=== PATIENT | female | born 1940 | race Caucasian/White ===

== ENCOUNTER → 2021-08-02 | Outpatient (CLI) | payer MEDICARE ==
[~2021-08-02] MED LIST: ATORVASTATIN CA80 MG PO; CARVEDILOL12.5 MG PO; CLEOCIN HCL300 MG PO; COREG 25MG TAB25 MG PO; ELIQUIS5 MG PO; HYDROCODON-ACE1 EAC4 PO; INVOKAMET 150-1 EACH PO; IRBESARTAN300 MG PO; LASIX20 MG PO; LEVOFLOXACIN500 MG PO; METFORMIN HCL1000 MG PO; NORVASC 5 MG TAB5 MG PO; OMEPRAZOLE20 MG PO; PLAVIX 75 MG TA75 MG PO; POTASSIUM CHLO10 MEQ PO; PRINIVIL10 MG PO; SYMBICORT 16010.2 GM INH; VENTOLIN HFA 66.7 GM INH; VITAMIN B-12500 MCG PO; VITAMIN D350 MCG PO; ZOCOR40 MG PO
[2021-08-02 10:46] LABS: HEMOGLOBIN 16.1 gm/dl (12.3-15.3); RED BLOOD COUNT 4.86 M/UL (4.00-5.10); WHITE BLOOD COUNT 9.3 K/UL (4.5-11.0)
[2021-08-02 11:06] LABS: BUN/CREATININE RATIO 24 (0-10)
== END ==
LOC: RAD 10:25
PROVIDERS: Internal Medicine Cardiovascular Disease
DX: Z45.02 Encounter for adjustment and management of automatic implantable cardiac defibrillator (principal); I48.0 Paroxysmal atrial fibrillation; I49.5 Sick sinus syndrome; I42.0 Dilated cardiomyopathy; I11.0 Hypertensive heart disease with heart failure; I50.22 Chronic systolic (congestive) heart failure; M43.8X4 Other specified deforming dorsopathies, thoracic region
CPT/HCPCS: 36415; 71046; 80048; 85025

== ENCOUNTER → 2021-08-02 | Outpatient (CLI) | payer MEDICARE | LOC: HEART 5 07-26 09:30 | DX: I42.0 Dilated cardiomyopathy (principal); I50.22 Chronic systolic (congestive) heart failure; I70.0 Atherosclerosis of aorta; I27.20 Pulmonary hypertension, unspecified; I08.1 Rheumatic disorders of both mitral and tricuspid valves | CPT/HCPCS: 93306 ==

== ENCOUNTER → 2021-08-03 | Outpatient (CLI) | payer MEDICARE ==
[~2021-08-03] VITALS: Ht 157.5 cm; Wt 62.1 kg
== END ==
LOC: CATH 06:57
DX: Z45.02 Encounter for adjustment and management of automatic implantable cardiac defibrillator (principal); I11.0 Hypertensive heart disease with heart failure; I50.22 Chronic systolic (congestive) heart failure; E11.9 Type 2 diabetes mellitus without complications; I42.0 Dilated cardiomyopathy; I42.8 Other cardiomyopathies; I47.2 Ventricular tachycardia; I48.0 Paroxysmal atrial fibrillation; I49.5 Sick sinus syndrome; J44.9 Chronic obstructive pulmonary disease, unspecified; F17.200 Nicotine dependence, unspecified, uncomplicated; Z88.6 Allergy status to analgesic agent; Z79.899 Other long term (current) drug therapy; Z79.02 Long term (current) use of antithrombotics/antiplatelets; Z79.01 Long term (current) use of anticoagulants; Z79.84 Long term (current) use of oral hypoglycemic drugs; Z79.51 Long term (current) use of inhaled steroids; Z95.0 Presence of cardiac pacemaker
CPT/HCPCS: 33240; 82962; 93641; 99152; 99153; C1721; J2250; J3010; J3370; J7040; J7050